=== PATIENT | male | born 1995 | race Caucasian/White ===

== ENCOUNTER 2021-12-03 23:06 | Emergency (ER) | payer SELFPAY ==
[~2021-12-03] VITALS: Ht 182.9 cm; Wt 96.0 kg
[2021-12-04] MEDS ORDERED: LIDOCAINE HCL 1% 20ML VIAL (Pyxis) INJ INFIL ONE (01:45)
[2021-12-04] MEDS ORDERED: HYDROCODONE/ACETAMINOPHEN 5/325MG TABLET PO PRN (01:45)
[2021-12-04 04:18] VITALS: BP 115/66
== END 2021-12-04 04:22 | disposition home or self-care (01) ==
LOC: ER 23:06
DX: S62.665A Nondisplaced fracture of distal phalanx of left ring finger, initial encounter for closed fracture (principal); S60.142A Contusion of left ring finger with damage to nail, initial encounter; W22.8XXA Striking against or struck by other objects, initial encounter; Y93.89 Activity, other specified; Y92.89 Other specified places as the place of occurrence of the external cause; Y99.8 Other external cause status
CPT/HCPCS: 11740; 73130; 99284; J3490